=== PATIENT | male | born 1930 | race Caucasian/White ===

== ENCOUNTER → 2017-09-19 | Outpatient (CLI) | payer MEDICARE ==
[~2017-09-19] MED LIST: ALEN70TA47 PO; ASCO10007 PO; ASPI-1012 PO; CALC-190 PO; CILO50TA PO; CLOP75TA32 PO; EYE VIT PO; FISH1CAP63 PO; GLUC-172 PO; METOPROLOL PO; MULTIVITAMIN PO; PRAV40TA3 PO; VITAMIN D PO
== END | disposition home or self-care (01) ==
LOC: SHCH 09:07
PROVIDERS: ATTEND Internal Medicine Cardiovascular Disease
DX: I11.9 Hypertensive heart disease without heart failure (principal); I65.23 Occlusion and stenosis of bilateral carotid arteries; R09.89 Other specified symptoms and signs involving the circulatory and respiratory systems
CPT/HCPCS: 93306; 93880